=== PATIENT | female | born 1960 | race African-American/Black ===

== ENCOUNTER → 2017-04-15 | Outpatient (CLI) | payer BC ==
--- NOTE | 2017-04-15 12:54 | RAD ---
DATE: 04/15/2017 EXAM: MAMMO LUIS MANUEL DIAG BILAT Bilateral digital screening mammography to include digital breast tomosynthesis (3D mammography) HISTORY: Palpable lump at the 10 11:00 position within the left breast for 4 months. COMPARISON: 07/06/2015 This study was interpreted with the benefit of Computerized Aided Detection (CAD). The breast parenchyma is heterogeneously dense, which could reduce sensitivity of mammography. Breast parenchyma level C. FINDINGS: Digital MLO and CC mammograms of both breasts were obtained. Additionally digital breast tomosynthesis (3D mammography) images of both breasts in the MLO and CC projections were performed. Comparison study is dated 07/06/2015. The breast parenchyma is heterogeneously dense which can obscure a lesion on mammography (breast density code C). No spiculated mass is seen. No malignant appearing calcification or area of architectural distortion is noted. Benign-appearing calcifications are seen within both breasts. Digital breast tomosynthesis images demonstrate no spiculated mass or malignant appearing calcification. Since the previous examination there has been no significant interval change. IMPRESSION: BI-RADS Category 1, negative. There is no mammographic evidence of malignancy. Routine yearly screening mammography is recommended for follow-up. BI-RADS CATEGORY: 1 NEGATIVE RECOMMENDED FOLLOW-UP: 12M 12 MONTH FOLLOW-UP PQRS compliance statement: Patient information was entered into a reminder system with a target due date 04/15/2018 for the next mammogram. Mammography is a sensitive method for finding small breast cancers, but it does not detect them all and is not a substitute for careful clinical examination. A negative mammogram does not negate a clinically suspicious finding and should not result in delay in biopsying a clinically suspicious abnormality. "Our facility is accredited by the [employer] Mammography [employer]."
--- NOTE | 2017-04-15 13:42 | RAD ---
Ultrasound of the left breast 04/15/2017 Clinical history: Palpable lump in the left breast. Technique: A real-time ultrasound examination of the left breast in area of the patient's palpable abnormality (11:00 position) was performed. Multiple images were obtained. Findings: Comparison is made to the patient's diagnostic mammogram performed earlier today. In the soft tissues immediately deep to the skin surface an oval-shaped anechoic structure with internal echoes is seen which measures 3 mm greatest diameter. This is 1.5 mm deep to the skin surface and is felt to most likely represent a skin lesion such as a sebaceous cyst. No solid or cystic mass is seen within the visualized glandular parenchyma of the left breast. Impression: 3 mm anechoic structure is seen within the soft tissues immediately deep to the skin surface at the 11:00 position which corresponds to the patient's palpable abnormality. Its ultrasound appearance is consistent with a skin lesion such as a sebaceous cyst.
== END | disposition home or self-care (01) ==
LOC: MAMMO 09:35
PROVIDERS: ATTEND Physician Assistant Medical
DX: N63.20 Unspecified lump in the left breast, unspecified quadrant (principal)
CPT/HCPCS: 76641; G0204; G0279; 77062; 77066

== ENCOUNTER → 2018-05-17 | Outpatient (CLI) | payer BC ==
--- NOTE | 2018-05-17 14:47 | RAD ---
DATE: 05/17/2018 EXAM: MAMMO LUIS MANUEL SCREENING BILATERAL HISTORY: Asymptomatic screening mammogram. Sister with history of breast cancer. COMPARISON: 04/15/2017, 07/06/2015 This study was interpreted with the benefit of Computerized Aided Detection (CAD). Breast Density: SCATTERED The breast parenchyma shows scattered fibroglandular densities. Breast parenchyma level B. FINDINGS: Bilateral CC and MLO views of the breasts were performed. 3-D tomosynthesis was performed in CC and MLO projections. Right breast: There are no suspicious microcalcifications, masses or areas of architectural distortion. Left breast: There are no suspicious microcalcifications, masses or areas of architectural distortion. Findings are stable from prior mammogram. IMPRESSION: Negative bilateral mammogram. BI-RADS CATEGORY: 1 NEGATIVE RECOMMENDED FOLLOW-UP: 12M 12 MONTH FOLLOW-UP PQRS compliance statement: Patient information was entered into a reminder system with a target due date 05/17/2019 for the next mammogram. Mammography is a sensitive method for finding small breast cancers, but it does not detect them all and is not a substitute for careful clinical examination. A negative mammogram does not negate a clinically suspicious finding and should not result in delay in biopsying a clinically suspicious abnormality. "Our facility is accredited by the [employer] Mammography [employer]."
== END | disposition home or self-care (01) ==
LOC: MAMMO 09:26
PROVIDERS: ATTEND Physician Assistant Medical
DX: Z12.31 Encounter for screening mammogram for malignant neoplasm of breast (principal)
CPT/HCPCS: 77063; 77067

== ENCOUNTER → 2018-05-20 | Outpatient (CLI) | payer BC ==
--- NOTE | 2018-05-21 09:19 | RAD ---
Thyroid ultrasound, 05/20/2018: HISTORY: Thyroid enlargement, dysphasia The right lobe of the gland measures 4.0 x 1.5 x 1.3 cm while the left lobe of the gland measures 3.4 x 1.0 x 1.1 cm. There is a cluster of 2 tiny smooth nodules in the upper pole of the right lobe of the gland. There are low level internal echoes. The appearance suggests a cluster of colloid cysts measuring 3 mm and 2 mm. No suspicious thyroid lesion is seen. IMPRESSION: 1. Cluster of small cysts in the right lobe of the gland. 2. The thyroid ultrasound is otherwise unremarkable. Electronically signed by: Naren Hathaway MD (05/21/2018 9:15 AM) [facility]
== END | disposition home or self-care (01) ==
LOC: US 13:44
PROVIDERS: ATTEND Physician Assistant Medical
DX: E04.2 Nontoxic multinodular goiter (principal)
CPT/HCPCS: 76536

== ENCOUNTER → 2018-12-08 | Outpatient (CLI) | payer BC ==
[~2018-12-08] MED LIST: IOHEXOL 300 MG/ML 75 ML VIAL. IV ONE
--- NOTE | 2018-12-08 16:28 | RAD ---
EXAM: CT Chest with IV contrast CLINICAL HISTORY: Follow-up of an abnormality on prior chest x-ray. COMPARISON: Prior chest x-ray is not available for comparison TECHNIQUE: CT of the chest following the administration of intravenous contrast. Axial, coronal and sagittal reformatted images were generated. ---PQRS compliance statement - One or more of the following individualized dose reduction techniques were utilized for this study: 1. Automated exposure control 2. Adjustment of the mA and/or kV according to patient size 3. Use of iterative reconstruction technique--- FINDINGS: CHEST: Heart is not enlarged. No pericardial effusion. No pleural effusion or pneumothorax. No mediastinal or hilar lymphadenopathy. No axillary lymphadenopathy. Calcified granuloma of the lingula. Subpleural patchy and reticular opacities in the lower lobes likely scarring/atelectasis. Central airways are patent. Visualized Upper abdomen: Hepatic hypoattenuation likely hepatic steatosis. Upper abdomen is otherwise unremarkable. Bones: Degenerative changes of the spine are seen. IMPRESSION: 1. No suspicious lung nodule or mass is definitively seen. 2. Calcified granuloma lingula. 3. The right chest radiograph which demonstrated the abnormality is not available for comparison. If the prior report and images are submitted, a direct comparison can be performed. 4. Hepatic hypoattenuation may be seen with hepatic steatosis. Electronically signed by: Wojciech Watts MD (12/08/2018 4:25 PM) [facility]
== END | disposition home or self-care (01) ==
LOC: CT 15:08
PROVIDERS: ATTEND Pediatrics Pediatric Cardiology
DX: J98.4 Other disorders of lung (principal); J84.10 Pulmonary fibrosis, unspecified; M47.814 Spondylosis without myelopathy or radiculopathy, thoracic region
CPT/HCPCS: 71260; Q9967

== ENCOUNTER → 2020-03-21 | Outpatient (CLI) | payer BC ==
--- NOTE | 2020-03-21 15:13 | RAD ---
DATE: 03/21/2020 7:48 AM EXAM: MAMMO LUIS MANUEL SCREENING BILATERAL HISTORY: Screening COMPARISON: 05/17/2018 Bilateral CC and MLO views of the breasts were performed. Bilateral breast tomosynthesis was performed in CC and MLO projections. This study was interpreted with the benefit of Computerized Aided Detection (CAD). FINDINGS: Breast Density: SCATTERED The breast parenchyma shows scattered fibroglandular densities. Breast parenchyma level B No suspicious masses, microcalcifications or architectural distortion is present to suggest malignancy in either breast. The visualized axillae are unremarkable. IMPRESSION: No mammographic evidence of malignancy. BI-RADS CATEGORY: 1 NEGATIVE RECOMMENDED FOLLOW-UP: 12M 12 MONTH FOLLOW-UP Annual screening mammography is recommended, unless clinically indicated sooner based on symptoms or change in physical exam. PQRS compliance statement: Patient information was entered into a reminder system with a target due date for the next mammogram. Mammography is a sensitive method for finding small breast cancers, but it does not detect them all and is not a substitute for careful clinical examination. A negative mammogram does not negate a clinically suspicious finding and should not result in delay in biopsying a clinically suspicious abnormality. "Our facility is accredited by the [employer] Mammography [employer]."
== END ==
LOC: MAMMO 07:30
PROVIDERS: ATTEND Physician Assistant Medical
DX: Z12.31 Encounter for screening mammogram for malignant neoplasm of breast (principal)
CPT/HCPCS: 77063; 77067

== ENCOUNTER → 2021-04-24 | Outpatient (CLI) | payer BC ==
--- NOTE | 2021-04-24 16:28 | RAD ---
EXAM: Bilateral digital screening mammogram with tomosynthesis. HISTORY: 60-year-old female presents for screening mammography. TECHNIQUE: Full-field digital craniocaudal and mediolateral oblique 2D and 3D tomosynthesis images of both breasts are obtained for evaluation. Computer aided detection was applied. COMPARISON: 03/21/2020 and 05/17/2018 BREAST PARENCHYMAL DENSITY: Level B - Scattered fibroglandular densities. FINDINGS: There is no new suspicious mass, microcalcification or region of architectural distortion. There is a stable benign-appearing circumscribed nodule within the intrathecal position of the left b reast. IMPRESSION: BI-RADS Category 2: Benign finding(s). RECOMMENDATION: Annual mammography is recommended. If your mammogram demonstrates that you have dense breast tissue, which could hide abnormalities, and if you have other risk factors for breast cancer that have been identified, you might benefit from s upplemental screening tests that may be suggested by your ordering physician. Dense breast tissue, i n and of itself, is a relatively common condition. This information is not provided to cause undue c oncern, but rather to raise your awareness and to promote discussion with your physician regarding th e presence of other risk factors, in addition to dense breast tissue. A report of your mammography re sults will be sent to you and your physician. You should contact your physician if you have any ques tions or concerns regarding this report. Mammography is a sensitive method for finding small breast cancers, but it does not detect them all a nd is not a substitute for careful clinical examination. A negative mammogram does not negate a clin ically suspicious finding and should not result in delay in biopsying a clinically suspicious abnorma lity. PQRS compliance statement - Patient information was entered into a reminder system with a target due date for the next mammogram. "Our facility is accredited by the [employer] Mammography [employer]." Electronically signed by: Jeni Harris MD (04/24/2021 4:25 PM) [id number]
== END ==
LOC: MAMMO 11:14
PROVIDERS: ATTEND Physician Assistant Medical
DX: Z12.31 Encounter for screening mammogram for malignant neoplasm of breast (principal)
CPT/HCPCS: 77063; 77067